=== PATIENT | female | born 1965 | race Caucasian/White ===

== ENCOUNTER 2022-05-22 12:05 | Outpatient (CLI) | payer BC, SELFPAY ==
[2022-05-22 13:01] LABS: Alanine Aminotransferase 19 U/L (6-35); Aspartate Amino Transferase 24 U/L (14-36)
== END 2022-05-22 12:06 | disposition home or self-care (01) ==
LOC: ANHLAB 12:08
PROVIDERS: Visit Provider Podiatrist Foot & Ankle Surgery
DX: B35.1 Tinea unguium (principal)
CPT/HCPCS: 36415; 84450; 84460

== ENCOUNTER 2022-09-04 09:22 | Outpatient (CLI) | payer BC, SELFPAY ==
[2022-09-04 10:27] LABS: Alanine Aminotransferase 24 U/L (6-35); Aspartate Amino Transferase 34 U/L (14-36)
== END 2022-09-04 09:23 | disposition home or self-care (01) ==
PROVIDERS: PCP Family Medicine; Visit Provider Podiatrist Foot & Ankle Surgery
DX: B35.1 Tinea unguium (principal)
CPT/HCPCS: 36415; 84450; 84460

== ENCOUNTER 2022-12-04 09:27 | Outpatient (CLI) | payer BC, SELFPAY ==
[2022-12-04 10:37] LABS: Alanine Aminotransferase 27 U/L (6-35); Aspartate Amino Transferase 32 U/L (14-36)
== END 2022-12-04 09:28 | disposition home or self-care (01) ==
LOC: ANHLAB 09:29
PROVIDERS: PCP Family Medicine; Visit Provider Podiatrist Foot & Ankle Surgery
DX: B35.1 Tinea unguium (principal)
CPT/HCPCS: 36415; 84450; 84460